=== PATIENT | male | born 1945 | race Caucasian/White ===

== ENCOUNTER 2017-11-02 07:43 | Inpatient (IN) | payer MEDICARE, OTHER ==
--- NOTE | 2017-10-17 10:40 | GHP ---
[f rep st] PREOP HISTORY AND PHYSICAL DATE OF ADMISSION: 11/02/2017 PROBLEM: Left knee arthritis. HISTORY OF PRESENT ILLNESS: The patient is a 72-year-old man admitted for a left total knee arthropl asty. He states that he has had intermittent trouble with his left knee for over 50 years. He had a n injury at age 18. He underwent an open medial meniscectomy and he also had a torn ACL. He had art hroscopic surgery on the knee in 2003. He is having persistent pain and swelling. He is using ibupr ofen and Tylenol. He likes to travel and hike, and the knee pain is limiting his activities. He has failed nonsurgical treatment and is admitted for a left total knee arthroplasty. PAST MEDICAL HISTORY: He is treated for elevated cholesterol and hypertension. No history of heart disease, stents, DVT, hepatitis or bleeding problems. He states that he has slight sleep apnea, but does not use a CPAP machine. He also has been told that he has a low platelet count. CURRENT MEDICATIONS: Atorvastatin 40 mg per day. Amlodipine. Finasteride for his prostate. Lisino pril 40 mg per day for hypertension. Lorazepam for sleep. DRUG ALLERGIES: Cephalexin and codeine and adhesive tape. METAL ALLERGIES: None. LATEX ALLERGY: None. SOCIAL HISTORY: The patient is retired. He does not smoke cigarettes or drink alcohol. He is marri . FAMILY HISTORY: Positive for hypertension, heart disease and cancer. PHYSICAL EXAMINATION: GENERAL APPEARANCE: Height 5 feet 11 inches. Weight 185 pounds. BMI 25.8. He is an alert, healthy-appearing man. EYES: Conjunctivae and sclerae are clear. Pupils are round and reactive. MOUTH: Good oral hygiene. No loose teeth. CHEST: Clear. HEART: Regular rhythm. No murmurs. EXTREMITIES: Pertinent findings limited to his left knee. He has a 2-inch medial incis ion from his previous open medial meniscectomy. Full extension and 120 degrees of flexion. He is te nder along the medial joint line. Mild varus alignment is present. His knee cannot be passively cor rected to neutral. IMPRESSION ON ADMISSION: 1. Left knee advanced medial compartment degenerative arthritis with varus deformity. 2. Left hip degenerative arthritis. 3. Treatment for hypertension. 4. Treatment for elevated cholesterol. PLAN: He will undergo a left total knee arthroplasty. The surgery has been described to him, includ ing the risks, complications, expectations and recovery time. I have stressed the importance of post operative physical therapy. He will go to outpatient physical therapy in [place]. I have advis ed him that a small percentage of people do not get a good result with total knee replacement. Films from August 25, 2017, show advanced degenerative arthritis of the left knee. He is bone-on-min ne in the medial compartment and has varus alignment. All his questions have been answered, and he consents to surgery. Copy requested to: Dr. [facility] [place], [place] /[id number]/MODL
[~2017-11-02 07:43] MED LIST: NS IV ONE; POVIDONE-IODINE 20 ML in SODIUM CL IRRIG SOLUTION 500 ML IRR ONE; ROPIVACAINE 0.2% 80 MG, EPINEPHrine 0.2 MG, KETOROLAC TROMETHAMINE 30 MG in SYRINGE 0 ML IU ONE; TRANEXAMIC ACID IV ONE; VANCOMYCIN 1.25 GM in D5W 250 ML IV ONE; VANCOMYCIN PHARMACY TO DOSE MISC ONE
[2017-11-02] MEDS ORDERED: FAMOTIDINE 20 MG TAB PO ONE (08:02)
[2017-11-02] MEDS ORDERED: ACETAMINOPHEN 325 MG TAB PO ONE (08:02)
[2017-11-02] MEDS ORDERED: GABAPENTIN 300 MG CAP PO ONE (08:02)
[2017-11-02] MEDS ORDERED: DEXAMETHASONE 4 MG/ML VIAL IVP ONE (08:02)
[2017-11-02] MEDS ORDERED: VANCOMYCIN 1 GM VIAL ONE (08:08)
[2017-11-02] MEDS ORDERED: ceFAZolin 1 GM/5 ML SYR ONE (08:09)
[2017-11-02] MEDS ORDERED: LR 1,000 ML IV ONE (08:25)
--- NOTE | 2017-11-02 09:07 | PDHPUP ---
History & Physical Update H&P update statement: This history and physical update is based on an assessment of the patient which was completed after admission or registration (within 24 hours), but prior to the surgery/procedure. H&P update: H&P reviewed & patient examined, no change in patient's condition since H&P completed
[2017-11-02] MEDS ORDERED: MIDAZOLAM 2 MG/2 ML VIAL ONE ×2 (09:43→10:25)
[2017-11-02] MEDS ORDERED: PROPOFOL/EMULSION 500 MG/50 ML BOTTLE IV ONE (09:47)
--- NOTE | 2017-11-02 10:44 | PDANEPAE ---
ANE History of Present Illness 72 year old male here for Left Total knee replacement ANE Past Medical History - Cardiovascular History Hx Hypertension: Yes Hx Arrhythmias: No Hx Chest Pain: No Hx Coronary Artery / Peripheral Vascular Disease: No Hx CHF / Valvular Disease: No Hx Palpitations: No Cardiovascular History Comment: see's Dr. Kate in [facility] - Pulmonary History Hx COPD: No Hx Asthma/Reactive Airway Disease: No Hx Recent Upper Respiratory Infection: No Hx Oxygen in Use at Home: No Hx Sleep Apnea: Yes Sleep Apnea Screening Result - Last Documented: Positive Pulmonary History Comment: hx of maribel- hasn't used oral device in years - Neurologic History Hx Cerebrovascular Accident: No Hx Seizures: No Hx Dementia: No - Endocrine History Hx Diabetes: No - Renal History Hx Renal Disorders: Yes Renal History Comment: frequency. enlarged prostate - Liver History Hx Hepatic Disorders: No - Neurological & Psychiatric Hx Hx Neurological and Psychiatric Disorders: No Neurological / Psychiatric History Comment: hx of depression - Cancer History Hx Cancer: Yes Cancer History Comment: basal skin cell- multiple procedures to remove - Congenital Disorder History Hx Congenital Disorders: No - GI History Hx Gastrointestinal Disorders: Yes Gastrointestinal History Comment: reflux. 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 wears glasses. wears bilateral hearing aides - Chronic Pain History Chronic Pain: Yes (bilateral knees, low back pain) - Surgical History Prior Surgeries: appy. biopies of bladder. knee scopes x2- left. arteriogram of neck ANE Review of Systems Review of Systems: - Exercise capacity METS (RN): 4 METS ANE Patient History - Allergies Allergies/Adverse Reactions: adhesive tape Allergy (Verified 11/02/17 08:10) Rash cephalexin [From Keflex] Allergy (Verified 11/02/17 08:10) DEHYDRATION codeine Allergy (Verified 11/02/17 08:10) DIZZINESS - Home Medications Home Medications: Atorvastatin Calcium [Lipitor 40 mg (*)] 40 mg PO HS 09/26/17 [Last Taken 22:00] Cholecalciferol Vit D3 [Vitamin D3 2000 units tab (OTC)] 2,000 units PO DAILY [Last Taken 10/25/17] Ferrous Sulfate [Ferrous Sulf 325 MG (*)] 325 mg PO DAILY 09/26/17 [Last Taken 10/25/17] Finasteride [Proscar 5 MG (*)] 5 mg PO HS 09/26/17 [Last Taken 11/01/17 22:00] Herbals/Supplements -Info Only 1 ea PO DAILY 09/26/17 [Last Taken 10/25/17] LORazepam [Ativan (*)] 1 mg PO HS 09/26/17 [Last Taken 11/01/17 22:00] Lisinopril [Zestril 40 mg (*)] 40 mg PO HS 09/26/17 [Last Taken 10/31/17 22:00] - NPO status NPO Since - Liquids (Date): 11/02/17 NPO Since - Liquids (Time): 06:45 NPO Since - Solids (Date): 11/01/17 NPO Since - Solids (Time): 19:30 - Smoking Hx Smoking Status: Former smoker - Family Anes Hx Family Hx Anesthesia Complications: none ANE Labs/Vital Signs - Vital Signs Blood Pressure: 144/83 Heart Rate: 95 Respiratory Rate: 16 O2 Sat (%): 95 Height: 177.8 cm Weight: 83.915 kg ANE Physical Exam - Airway Mallampati Score: Class 2 Mouth exam: normal dental/mouth exam - Cardiovascular Cardiovascular: no murmur, rub, or gallop - ASA Status ASA Status: II ANE Anesthesia Plan Anesthesia Plan: MAC, spinal Regional Anesthesia: continuous NB, adductor canal FNB
[2017-11-02] MEDS ORDERED: NALOXONE HCL 0.4 MG/ML INJ IVP PRN (10:45)
[2017-11-02] MEDS ORDERED: ONDANSETRON 4 MG/2 ML VIAL IVP PRN ×2 (10:45→11:57)
[2017-11-02] MEDS ORDERED: fentaNYL 100 MCG/2 ML INJ IVP PRN (10:45)
--- NOTE | 2017-11-02 10:45 | POSTANESTH ---
Post Anesthetic Evaluation Respiratory Status: Normal, Stable Level of Consciousness/Mental Status: Can Participate in Eval Pain Control: Adequate, Prn Tx Ordered Nausea/Vomiting Control: Adequate, Prn Tx Ordered Complications Possibly Related to Anesthesia: None Noted
[2017-11-02] MEDS ORDERED: ROPIVACAINE HCL 150 MG/30 ML INJ ONE (11:28)
--- NOTE | 2017-11-02 11:44 | POSTOPPROG ---
Post Op Note Date of Operation: 11/02/17 Surgeon: Santana Ng Certified Scrub Tech: Hemanth Gandara Anesthesiologist: Abhijeet Anesthesia: GET(General Endotracheal), Spinal Post-op Diagnosis: Left knee severe degenerative arthritis Procedure: Left total knee arthroplasty Inf/Abcess present in the surg proc area at time of surgery?: No EBL: 50-100 (Adductor canal block in PACU with indwelling catheter.)
[2017-11-02] MEDS ORDERED: CYCLOBENZAPRINE 10 MG TAB PO PRN (11:57)
[2017-11-02] MEDS ORDERED: MAGNESIUM HYDROXIDE 30 ML UDCUP PO PRN (11:57)
[2017-11-02] MEDS ORDERED: ONDANSETRON DISINTEGRATING 4 MG TAB PO PRN (11:57)
[2017-11-02] MEDS ORDERED: LACTULOSE 20 GM/30 ML UDCUP PO PRN (11:57)
[2017-11-02] MEDS ORDERED: BISACODYL 10 MG SUPP PR PRN (11:57)
[2017-11-02] MEDS ORDERED: METOCLOPRAMIDE 10 MG/2 ML VIAL IVP PRN (11:57)
[2017-11-02] MEDS ORDERED: PROMETHAZINE HCL 25 MG SUPPR PR PRN (11:57)
[2017-11-02] MEDS ORDERED: oxyCODONE IR 5 MG TAB PO PRN (11:57)
[2017-11-02] MEDS ORDERED: KETOROLAC 30 MG/1 ML SDV IVP PRN (11:57)
[2017-11-02] MEDS ORDERED: PROMETHAZINE HCL 25 MG/ML INJ IVP PRN (11:57)
[2017-11-02] MEDS ORDERED: POLYETHYLENE GLYCOL 3350 17 GM PKT PO PRN (11:57)
[2017-11-02] MEDS ORDERED: traMADol 50 MG TAB PO PRN (11:57)
[2017-11-02] MEDS ORDERED: TEMAZEPAM 15 MG CAP PO PRN (11:57)
[2017-11-02] MEDS ORDERED: diphenhydrAMINE 25 MG CAP PO PRN (11:57)
[2017-11-02] MEDS ORDERED: NS 500 ML IV PRN (11:57)
[2017-11-02] MEDS ORDERED: DIPHENOXYLATE/ATROPINE LOMOTIL 1 TAB PO PRN (11:57)
[2017-11-02] MEDS ORDERED: LR 1,000 ML IV SCH (12:00)
--- NOTE | 2017-11-02 12:28 | GOP ---
[f rep st] OPERATIVE REPORT DATE OF OPERATION: SURGEON: Santana Ng MD [employer] CONSULTANT: Ciaran Mendes PA-C,and Harjinder Torres CFA. ANESTHESIA: A combination of Marcaine spinal, IV sedation, and adductor canal block by Dr. Ovidio Jha MD PREOPERATIVE DIAGNOSIS: POSTOPERATIVE DIAGNOSIS: Left knee severe degenerative arthritis. PROCEDURE PERFORMED: Left total knee arthroplasty, cemented, Warren and Nephew Journey II, posterior- stabilized. FINDINGS: DESCRIPTION OF PROCEDURE: The patient received 1 g IV vancomycin preoperatively within 60 minutes of surgery. He also received IV tranexamic acid at a dose of 10 mg/kg. He was placed on the operating room table and given spinal anesthesia with Marcaine by Dr. Jha. He was then placed supine and given IV sedation. A Moss catheter was not used. He wore a CLAUDIO stocking and SCD on the nonoperati ve leg. A bolster was placed under the left hip to prevent excessive external rotation of the leg. His left lower extremity was prepped with ChloraPrep from the upper thigh tourniquet to the tips of t he toes. It was draped free using sterile sheets, stockinette, and Ioban plastic adhesive drape. Th e lower leg was wrapped with compressive Coban. His leg was exsanguinated with elevation and a 6-inc h compressive wrap, and the tourniquet was inflated to 300 mmHg. The World Health Organization time-out was performed to verify the correct patient identity and the c orrect surgical side and site. The [place] time-out was also performed. The [employer] leg-holding device was sterilely attached to the operating room table and used throughout the procedure to help position the knee. A straight midline incision was made centered on the patell a. Subcutaneous tissues were sharply divided, and hemostasis was obtained using electrocautery. A m edial subcutaneous flap was developed, and the capsule and synovium were opened in a medial parapatel lar fashion. Extensive degenerative changes were present, primarily in the medial compartment. He a lso had quite a bit of chalky white crystalline material deposited in his soft tissues. The medial c apsule and periosteum were elevated off the rim of the medial tibial plateau all the way around to th e posteromedial corner. The medial collateral ligament was released enough to balance the medial yary e of the knee. In order to improve exposure, the, the patella was prepared first. The original thickness of the pat alex was measured. Peripheral osteophytes were removed. I cut a flat surface on the back of the pat alex. It was sized for a 35 mm resurfacing component. I removed enough bone from the patella such t hat the remaining bone plus the thickness of the patellar component recreated the original thickness of the patella. The composite thickness was 26 mm. The intramedullary alignment guide system was used to set up the distal femoral cut. The distal femu r was cut in 5 degrees of valgus. Because of a slight preoperative flexion contracture, I made a +2 mm cut on the distal femur. The sizing jig was used to determine proper femoral sizing. He was a tr ue size 7 without an anterior shift. The 5-in-1 cutting block was applied, and the anterior and post erior condylar cuts and chamfer cuts were made. The final jig was used to remove the central portion of the distal femur to accommodate the posterior-stabilized femoral component. I was careful to det ermine proper rotation by referencing off [place] line and other bony landmarks. Each cut was chec ked for accuracy before and after it was made. The femur was sized for a size 7 posterior-stabilized component. The trial component was tapped securely into place and was a good fit. Next, the tibia was prepared. The proximal tibial cut was made using the extramedullary alignment gu demetrius system. The cut was made in a few degrees of posterior slope. I was careful to achieve proper v arus/valgus alignment and proper rotation. The posterior compartment was cleared of meniscal remnant s. The posterior aspect of his medial meniscus was heavily embedded with white, chalky calcium pyrop hosphate crystals. Osteophytes were removed from the back of the femoral condyles. I checked the fl exion and extension gaps, and they were equal, balanced, and rectangular. The tibia was sized for a size 6 component. With the trial components in place, I selected a 10 mm polyethylene posterior-stab ilized tibial insert. The knee came to full extension and flexed to 130 degrees. The collateral lig aments were stable and balanced in 90 degrees of flexion and full extension. The trial patellar butt on was applied, and patellar tracking was checked. He had a slight tendency for lateral tilt. I did a limited lateral release. Following that, tracking was very good without digital pressure. 40 mL of the joint anesthetic cocktail was injected into the posterior capsule, the periarticular str uctures, the quadriceps muscle and tendon areas, and the subcutaneous tissues along the skin edges. A second dose of IV tranexamic acid was given at a dose of 10 mg/kg. The surfaces were prepared for cementing. They were carefully cleaned with the pulsating lavage irri gation and thoroughly dried. The CarboJet device was used to blow dry the cancellous surfaces. A do uble batch of high-viscosity methylmethacrylate cement, with 2 g of powdered vancomycin added, was mi xed. While it was still in a doughy state, all 3 components were cemented in place. Excess cement w as removed before it hardened. The 10 mm trial tibial insert was re-tried and was the proper thickness. The actual component was in serted and locked into place. The knee was thoroughly irrigated one final time with a dilute Betadin e solution. The tourniquet was deflated, and the total tourniquet time was 57 minutes. The vastus medialis portion of the extensor mechanism was repaired with several interrupted figure-of -eight #2 FiberWire sutures. The capsule and synovium were closed, first with multiple interrupted f [id number] 0 PDS sutures, followed by a running #2 barbed Ethicon Stratafix PDO suture. The subcutaneous tissues were closed with a running 0 barbed Ethicon Stratafix Monoderm suture. The skin was closed with a running 3-[address] ratafix Monoderm subcuticular suture. The skin was sealed with half-inch Steri-Strips. The wound wa s covered with a large Mepilex sterile waterproof surgical dressing and a 6-inch compressive wrap. A long-leg CLAUDIO stocking and SCD were applied, followed by the cooling device. The patient wore a stoc dary and SCD on the opposite leg during the procedure. I used a size 7 cemented Warren and Nephew Oxinium posterior-stabilized femoral component, size 6 ceme nted tibial base plate, 10 mm posterior-stabilized tibial insert, and a 35 mm cemented round all-poly ethylene resurfacing patellar component. The estimated blood loss following deflation of the tourniquet was about 100 mL. The sponge and needle count were correct on 2 occasions. He was awakened from anesthesia, transferred to his hospital [facility], and taken to PACU in satisfactor y condition. There were no recognized intraoperative complications. In the PACU, for additional pos toperative pain control, Dr. Jha performed an adductor canal block and inserted an indwelling ca theter. Hemanth Mendes and Harjinder Torres acted as surgical assistants. Their assistance was a medical necess ity for safe completion of the procedure. POSTOPERATIVE DIAGNOSIS: Left knee severe degenerative arthritis. Copy requested to: Dr. Rock Tran [place] /[id number]/MODL
[2017-11-02] MEDS: ACETAMINOPHEN 325 MG TAB PO SCH ×3 (14:16→23:04)
[2017-11-02] MEDS: TRANEXAMIC ACID 650 MG TAB PO SCH (18:45)
[2017-11-02] MEDS: FAMOTIDINE 20 MG TAB PO SCH (20:45)
[2017-11-02] MEDS: SENNOSIDES/DOCUSATE SODIUM TAB PO SCH (20:45)
[2017-11-02] MEDS: ASPIRIN EC 325 MG TAB PO SCH (20:47)
[2017-11-02] MEDS ORDERED: ATORVASTATIN CALCIUM 40 MG TAB PO SCH (21:00)
[2017-11-02] MEDS ORDERED: LORazepam 1 MG TAB PO SCH (21:00)
[2017-11-02] MEDS ORDERED: LISINOPRIL 40 MG TAB PO SCH (21:00)
[2017-11-02] MEDS ORDERED: VANCOMYCIN 1.25 GM in D5W 250 ML IV ONE (21:30)
[2017-11-03] MEDS: TRANEXAMIC ACID 650 MG TAB PO SCH (03:07)
[2017-11-03 03:50] VITALS: RESP 16
[2017-11-03] MEDS: ACETAMINOPHEN 325 MG TAB PO SCH (05:59)
[2017-11-03] MEDS ORDERED: ROPIVACAINE HCL 150 MG/30 ML INJ ONE (06:52)
--- NOTE | 2017-11-03 07:33 | SOAPPROG ---
SOAP Progress Note Assessment/Plan: Assessment: Afebrile. Awake and alert. He has been up and walking in the room. Voiding spontaneously. Moderate pain. The adductor canal block is working. Dr. Jha re-dosed the catheter this morning and removed. Postop films look excellent. Postop H&H is satisfactory. Plan: Up with physical therapy today. Standing full-length leg films. Discharged later today. 11/03/17 07:32 Objective: Vital Signs Temp Pulse Resp BP Pulse Ox 37.1 C 65 16 136/78 H 94 11/03/17 03:49 11/03/17 03:49 11/03/17 03:49 11/03/17 03:49 11/03/17 03:49 Laboratory Results 11/03/17 04:45 11/02/17 11/03/17 11/04/17 05:59 05:59 05:59 Intake Total 1415 250 Output Total 800 Balance 615 250 ICD10 Worksheet Patient Problems: Problems Problem Status Onset Osteoarthritis of left knee Acute
[2017-11-03 07:35] VITALS: BP 142/78; PULSE 60; TEMP 98.6; O2SAT 99
--- NOTE | 2017-11-03 08:03 | POSTANESTH ---
Post Anesthetic Evaluation Respiratory Status: Normal, Stable Level of Consciousness/Mental Status: Can Participate in Eval Pain Control: Adequate, Prn Tx Ordered Nausea/Vomiting Control: Adequate, Prn Tx Ordered Complications Possibly Related to Anesthesia: None Noted (Adductor canal catheter dosed with 30 cc of Naropin 0.5% after negative aspiration and negative test dose. Catheter removed. No signs of infection.)
--- NOTE | 2017-11-03 08:37 | GDS ---
[f rep st] DISCHARGE SUMMARY ADMISSION DIAGNOSIS: Left knee degenerative arthritis. DISCHARGE DIAGNOSIS: Left knee degenerative arthritis. OPERATION PERFORMED: 11/02/2017, a left total knee arthroplasty. POSTOPERATIVE COMPLICATIONS: None. CONDITION ON DISCHARGE: Improved. DESCRIPTION OF HOSPITAL COURSE: The patient was admitted to the hospital on the morning of surgery. His admission CBC was normal. The same day, under a combination of Marcaine spinal, IV sedation, an d adductor canal block, he underwent a left total knee arthroplasty. Postoperatively, was treated wi multimodal DVT prophylaxis, including aspirin. On the first postoperative day, his hemoglobin and hematocrit 12.4 and 35.1. He had an indwelling adductor canal catheter. He was re-dosed on the st postoperative morning and a catheter was then removed. He was seen by physical therapy and made e xcellent progress with ambulation and stairs. DISPOSITION: The patient is discharged to his home in [place]. He may progress to full weightb earing on the left as tolerated. He will go to outpatient physical therapy next week, CLAUDIO stockings for 1 week. He has prescriptions for tramadol and oxycodone for pain control. Continue aspirin 325 mg p.o. daily for 21 days. I will see him back in the office on November 17, 2017. If there are any problems, he is to call me at the office. Copy requested to: Dr. Awilda Tran [place] /[id number]/MODL
[2017-11-03] MEDS: ASPIRIN EC 325 MG TAB PO SCH (08:47)
[2017-11-03] MEDS: FAMOTIDINE 20 MG TAB PO SCH (08:48)
[2017-11-03] MEDS: SENNOSIDES/DOCUSATE SODIUM TAB PO SCH (08:49)
[2017-11-03] MEDS ORDERED: FERROUS SULFATE 140 MG TAB.ER PO SCH (09:00)
--- NOTE | 2017-11-03 10:17 | ASMTCMCOM ---
CM Note CM Note Notes: Pt medically stable for d/c, no CM d/c needs identified PT rec outpatient. Date Signed: 11/03/2017 10:17 AM Electronically Signed By:SALENA Viveros
--- NOTE | 2017-11-03 16:11 | ASDISCHSUM ---
Discharge Information Plan Status:Home with No Needs Medically Cleared to Leave: Discharge Date:11/03/2017 10:37 AM CM D/C Disposition:Home, Routine, Self-Care ADT D/C Disposition:Home, Routine, Self-Care Projected Discharge Date:11/03/2017 10:37 AM Transportation at D/C: Discharge Delay Reason: Follow-Up Date:11/03/2017 10:37 AM Discharge Slot: Final Diagnosis: Placement Information Patient Contact Information Contact Name:MARZENA Relationship: Address:[address] [place] [address] City:[place] Alternate Phone: [facility]/Zip Code:[place] [address] Email: Financial Information Financial Class:Medicare Advantage Plans Primary Plan Desc:[facility] ADVANTAGE PLANS Primary Plan Number:[id number] Secondary Plan Desc: Secondary Plan Number: Assessment Information [facility] CM Progress Note CM Note CM Note Notes: Pt medically stable for d/c, no CM d/c needs identified PT rec outpatient. Date Signed: 11/03/2017 10:17 AM Electronically Signed By:SALENA Viveros Intervention Information
== END 2017-11-03 10:37 | disposition home or self-care (01) | DRG 470 ==
LOC: F3N 07:43
PROVIDERS: ADMIT Orthopaedic Surgery; ATTEND Orthopaedic Surgery
PROC: 0SRD0J9 Replacement of Left Knee Joint with Synthetic Substitute, Cemented, Open Approach (ICD-10-PCS; principal; 2017-11-02 09:15)
DX: M17.12 Unilateral primary osteoarthritis, left knee (principal); M16.12 Unilateral primary osteoarthritis, left hip; I10 Essential (primary) hypertension; E78.00 Pure hypercholesterolemia, unspecified
CPT/HCPCS: 97116-GP; 97161-GP; 97165-GO; 97530-GP; C1713; G8978-GP-CJ; G8979-GP-CH; G8979-GP-CI; G8980-GP-CI; G8987-GO-CI; G8988-GO-CI; G8989-GO-CI; J0171; J1100; J1885; J2250; J2704; J2795; J3370